=== PATIENT | male | born 1945 | race Caucasian/White ===

== ENCOUNTER → 2016-06-18 | Outpatient (CLI) | payer OTHER ==
[~2016-06-18] MED LIST: ASPI81TA28 PO; LVNIS150 SQ; RIVA1TAB4 PO; WARF10TA PO; WARF5TAB90 PO
[2016-06-18 10:00] LABS: ESTIMATED AVERAGE GLUCOSE 120 mg/dl; HA1C FLAG Normal (Normal)
== END | disposition home or self-care (01) ==
LOC: C.LAB1850 06:52
PROVIDERS: ATTEND Internal Medicine
DX: Z00.00 Encounter for general adult medical examination without abnormal findings (principal); E78.5 Hyperlipidemia, unspecified; R73.9 Hyperglycemia, unspecified

== ENCOUNTER → 2016-07-09 | Outpatient (CLI) | payer OTHER | END | disposition home or self-care (01) | LOC: C.LABSPEC 17:27 | PROVIDERS: ATTEND Internal Medicine | DX: Z12.11 Encounter for screening for malignant neoplasm of colon (principal) ==

== ENCOUNTER 2016-08-21 18:28 | Emergency (ER) | payer OTHER ==
[~2016-08-21] VITALS: Ht 177.8 cm; Wt 130.0 kg
[~2016-08-21 18:28] MED LIST changes: -ACET325T96 PO; -ASPI81TA28 PO; -CETI10TA10 PO; -LVNIS150 SQ; -RIVA1TAB4 PO; -WARF10TA4 PO; -WARF5TAB90 PO; -WARF7.5T4 PO
[2016-08-21 18:33] VITALS: TEMP 36.8; Ht 177.8 cm; Wt 130.0 kg
--- NOTE | 2016-08-21 19:00 | EMERGENCY ROOM VISIT NOTE ---
History Report prepared by Ishan: Lina Beverly Under the Supervision of: Dr. Abhay Kirby D.O. First contact with patient: 18:38 Chief Complaint: ABNORMAL DIAGNOSTIC TESTING Stated Complaint: DVT RIGHT LEG History of Present Illness The patient is a 71 year old male who presents to the Emergency Room with complaints of persistent right leg pain starting 4-5 days ago. He was sent to the ED after an ultrasound which found a DVT in his right leg. 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 No cause was identified for it at the time. He was put on Coumadin. He has been off Coumadin for 2 years. He denies any chest pain, SOB , nausea, vomiting, or rectal bleeding. He denies any liver or kidney problems. He denies any recent surgery or travel. He currently takes 2 baby aspirin a day. He sees no reason for not starting Coumadin again. He has no other medical problems. He denies any alcohol use. He is retired. Source of History: patient Onset: 4-5 days ago Position: leg (right) Quality: other (pain) Timing: other (persistent) Associated Symptoms: No SOB, No chest pain, No nausea, No vomiting Note: Pt denies rectal bleeding. Review of Systems See HPI for pertinent positives & negatives. A total of 10 systems reviewed and were otherwise negative. Past Medical & Surgical Medical Problems: (1) Deep venous thrombosis (2) idris-rectal abscess Family History No pertinent family history reported. Social History Smoking Status: Never Smoker Alcohol Use: none Marital Status: single Housing Status: lives alone Occupation Status: retired Current/Historical Medications Scheduled Aspirin (Aspirin Ec), 162 MG PO QAM Enoxaparin (Lovenox), 130 MG SQ BID Warfarin Sodium (Coumadin), 5 MG PO DAILY Allergies Coded Allergies: No Known Allergies (Unverified , 08/21/16) Physical Exam Vital Signs Date Time Temp Pulse Resp B/P Pulse Ox O2 Delivery O2 Flow Rate FiO2 08/21/16 19:46 78 18 160/86 96 Room Air 08/21/16 18:33 36.8 84 20 126/68 95 Room Air Physical Exam GENERAL: Patient is awake, alert, and in no acute distress. Patient is resting comfortably and showing no signs of anxiety EYES: The conjunctivae are clear. The pupils are round and reactive. EARS, NOSE, MOUTH AND THROAT: The nose is without any evidence of any deformity. Mucous membranes are moist tongue is midline NECK: The neck is nontender and supple. RESPIRATORY: Normal respiratory effort is noted there is no evidence of wheezing rhonchi or rales CARDIOVASCULAR: Regular rate and rhythm noted there no murmurs rubs or gallops normal S1 normal S2 GASTROINTESTINAL: The abdomen is soft. Bowel sounds are present in all quadrants. Abdomen is nontender MUSCULOSKELETAL/EXTREMITIES: There is no evidence of gross deformity full range of motion is noted in the hips and shoulders SKIN: Right calf tenderness, mild pedal edema noted bilaterally right greater than left. NEUROLOGIC: Patient is awake alert and oriented x3. Medical Decision & Procedures Laboratory Results 08/21/16 19:05 Red Blood Count 4.38, Mean Corpuscular Volume 95.2, Mean Corpuscular Hemoglobin 32.2, Mean Corpuscular Hemoglobin Concent 33.8, Mean Platelet Volume 9.3, Neutrophils (%) (Auto) 62.3, Lymphocytes (%) (Auto) 26.5, Monocytes (%) (Auto) 9.0, Eosinophils (%) (Auto) 1.5, Basophils (%) (Auto) 0.4, Neutrophils # (Auto) 4.96, Lymphocytes # (Auto) 2.11, Monocytes # (Auto) 0.72, Eosinophils # (Auto) 0.12, Basophils # (Auto) 0.03 08/21/16 19:05 Test 08/21/16 19:05 White Blood Count 7.96 K/uL (4.8-10.8) Red Blood Count 4.38 M/uL (4.7-6.1) Hemoglobin 14.1 g/dL (14.0-18.0) Hematocrit 41.7 % (42-52) Mean Corpuscular Volume 95.2 fL (80-100) Mean Corpuscular Hemoglobin 32.2 pg (25-34) Mean Corpuscular Hemoglobin Concent 33.8 g/dl (32-36) Platelet Count 197 K/uL (130-400) Mean Platelet Volume 9.3 fL (7.4-10.4) Neutrophils (%) (Auto) 62.3 % Lymphocytes (%) (Auto) 26.5 % Monocytes (%) (Auto) 9.0 % Eosinophils (%) (Auto) 1.5 % Basophils (%) (Auto) 0.4 % Neutrophils # (Auto) 4.96 K/uL (1.4-6.5) Lymphocytes # (Auto) 2.11 K/uL (1.2-3.4) Monocytes # (Auto) 0.72 K/uL (0.11-0.59) Eosinophils # (Auto) 0.12 K/uL (0-0.5) Basophils # (Auto) 0.03 K/uL (0-0.2) RDW Standard Deviation 46.4 fL (36.4-46.3) RDW Coefficient of Variation 13.4 % (11.5-14.5) Immature Granulocyte % (Auto) 0.3 % Immature Granulocyte # (Auto) 0.02 K/uL (0.00-0.02) Prothrombin Time 10.7 SECONDS (9.0-12.0) Prothromb Time International Ratio 1.0 (0.9-1.1) Activated Partial Thromboplast Time 25.0 SECONDS (21.0-31.0) Partial Thromboplastin Ratio 1.0 Anion Gap 8.0 mmol/L (3-11) Est Creatinine Clear Calc Drug Dose 94.5 ml/min Estimated GFR () 88.6 Estimated GFR (Non- 76.5 BUN/Creatinine Ratio 12.2 (10-20) Calcium Level 8.6 mg/dl (8.5-10.1) Total Bilirubin 0.2 mg/dl (0.2-1) Direct Bilirubin < 0.1 mg/dl (0-0.2) Aspartate Amino Transf (AST/SGOT) 20 U/L (15-37) Alanine Aminotransferase (ALT/SGPT) 38 U/L (12-78) Alkaline Phosphatase 47 U/L (45-117) Total Protein 7.5 gm/dl (6.4-8.2) Albumin 3.7 gm/dl (3.4-5.0) Laboratory results per my review. Medications Administered Medications (Trade) Dose Ordered Sig/Guilherme Route Start Time Stop Time Status Last Admin Dose Admin Enoxaparin Sodium (Lovenox Inj) 130 mg NOW ONCE SQ 08/21/16 19:30 08/21/16 19:31 DC 08/21/16 19:39 130 MG Warfarin Sodium (Coumadin Tab) 10 mg NOW ONCE PO 08/21/16 19:30 08/21/16 19:31 DC 08/21/16 19:39 10 MG ED Course 1849: The patient was evaluated in room B12B. A complete history and physical examination were performed. 1929: Coumadin Tab 10 mg PO, Lovenox Inj 130 mg SQ. 1939: Upon reevaluation, the patient is resting comfortably. I discussed the results and treatment plan with him. He verbalized agreement of the treatment plan. He was discharged home. Medical Decision Prior records reviewed and summarized above. Triage Nursing notes reviewed. The patient's history was concerning for swelling and pain in the leg. Differential diagnosis: Etiologies such as DVT, musculoskeletal, infection, joint effusion, trauma, lymphedema, idiopathic, CHF, as well as others were entertained. The patient is a 71-year-old male who presented to the emergency department after an outpatient ultrasound revealed a DVT in the right lower extremity. The patient has a history of DVT but is currently not on anticoagulation. I discussed the patient's laboratory and radiographic studies with him. He was started on Lovenox and Coumadin in the emergency department. He was encouraged to follow-up with the Coumadin clinic this week for reevaluation. He was also encouraged to continue all medications as prescribed. He denied having any chest pain or shortness of breath. He did not have unstable vital signs. He was encouraged to return to the emergency department immediately if symptoms change worsen or the need arises. Impression Primary Impression: Deep vein thrombosis (DVT) of right lower extremity Scribe Attestation The scribe's documentation has been prepared under my direction and personally reviewed by me in its entirety. I confirm that the note above accurately reflects all work, treatment, procedures, and medical decision making performed by me. Departure Information Dispostion Home / Self-Care Prescriptions Warfarin Sodium (COUMADIN) 5 Mg Tab 5 MG PO DAILY, #90 TAB Prov: Abhay Kirby, DO 08/21/16 Enoxaparin (LOVENOX) 150 Mg/1 Ml Inj 130 MG SQ BID, #30 SYR Prov: Abhay Kirby, DO 08/21/16 Referrals RV. Gibson MD (PCP) Forms HOME CARE DOCUMENTATION FORM, IMPORTANT VISIT INFORMATION, WORK / SCHOOL INSTRUCTIONS Patient Instructions DVT, My [facility] Additional Instructions Continue all medications as prescribed. Follow-up with your family this week for reevaluation. Return to the emergency department immediately if symptoms change worsen or the need arises. Problem Qualifiers Primary Impression: Deep vein thrombosis (DVT) of right lower extremity Affected thrombotic vein of extremity: unspecified vein of extremity Chronicity: acute Qualified Codes: I82.401 - Acute embolism and thrombosis of unspecified deep veins of right lower extremity
[2016-08-21 19:14] LABS: BASO % 0.4 %; BASO ABS # 0.03 K/uL (0-0.2); COMPLETE YES; EOS % 1.5 %; HEMATOCRIT 41.7 % (42-52); IG% 0.3 %; LYMPH % 26.5 %; LYMPH ABS # 2.11 K/uL (1.2-3.4); MEAN CELL VOLUME 95.2 fL (80-100); MEAN CORPUSCULAR HEMOGLOBIN 32.2 pg (25-34); MEAN CORPUSCULAR HGB CONC 33.8 g/dl (32-36); MEAN PLATELET VOLUME 9.3 fL (7.4-10.4); NEUT % 62.3 %; PLATELET COUNT 197 K/uL (130-400); RED BLOOD COUNT 4.38 M/uL (4.7-6.1); WHITE BLOOD COUNT 7.96 K/uL (4.8-10.8)
[2016-08-21] MEDS ORDERED: ASPI81TA28 PO (19:17)
[2016-08-21 19:23] LABS: PROTHROMBIN TIME (PATIENT) 10.7 SECONDS (9.0-12.0)
[2016-08-21] MEDS ORDERED: WARF5TAB90 PO (19:26)
[2016-08-21] MEDS ORDERED: LVNIS150 SQ (19:26)
[2016-08-21] MEDS ORDERED: ENOXAPARIN 150 MG/1ML SYR SQ ONE (19:30)
[2016-08-21] MEDS ORDERED: WARFARIN SOD 5 MG TAB PO ONE (19:30)
[2016-08-21 19:31] LABS: ALT/SGPT 38 U/L (12-78); AST/SGOT 20 U/L (15-37); BLOOD UREA NITROGEN 12 mg/dl (7-18); BUN/CREATININE RATIO 12.2 (10-20); CALCIUM 8.6 mg/dl (8.5-10.1); CARBON DIOXIDE 25 mmol/L (21-32); CHLORIDE 110 mmol/L (98-107); GLUCOSE 103 mg/dl (70-99); SODIUM 143 mmol/L (136-145)
[2016-08-21 19:34] LABS: ALKALINE PHOSPHATASE 47 U/L (45-117)
[2016-08-21 19:46] VITALS: BP 160/86; PULSE 78; O2SAT 96
[2017-02-26] MEDS ORDERED: WARF10TA4 PO (11:23)
[2017-02-26] MEDS ORDERED: ACET325T96 PO (12:29)
[2017-02-26] MEDS ORDERED: CETI10TA10 PO (12:29)
[2017-03-25] MEDS ORDERED: WARF7.5T4 PO (07:39)
== END 2016-08-21 19:58 | disposition home or self-care (01) ==
LOC: C.EDB 18:30
DX: I82.401 Acute embolism and thrombosis of unspecified deep veins of right lower extremity (principal); Z79.82 Long term (current) use of aspirin; Z79.01 Long term (current) use of anticoagulants; I82.411 Acute embolism and thrombosis of right femoral vein

== ENCOUNTER → 2016-08-21 | Outpatient (CLI) | payer OTHER ==
[~2016-08-21] MED LIST changes: +ACET325T96 PO; +CETI10TA10 PO; +WARF10TA4 PO; +WARF7.5T4 PO
--- NOTE | 2016-08-21 17:44 | DIAGNOSTIC IMAGING REPORT ---
RIGHT LOWER EXTREMITY VENOUS DOPPLER CLINICAL HISTORY: Right knee pain and swelling. COMPARISON STUDY: Bilateral lower extremity venous Doppler January 16, 2013 TECHNIQUE: Sonography of the deep venous system of the right lower extremity was performed. Compression and augmentation were evaluated. FINDINGS: A portion of the right femoral vein is incompletely compressible. This suggests age indeterminate thrombus. Occlusive thrombus is noted within a superficial vein of the posterior right calf. The thrombus extends into the right popliteal vein. IMPRESSION: 1. Age indeterminate nonocclusive thrombus within the right femoral vein. 2. Occlusive thrombus within a superficial vein of the right posterior calf. Thrombus extends into the right popliteal vein. This thrombus is likely acute.. Electronically signed by: Rafa Cobb M.D. 08/21/2016 5:43 PM Dictated Date/Time: 08/21/2016 5:40 PM
== END | disposition home or self-care (01) ==
LOC: C.ULTR 17:01
PROVIDERS: ATTEND Internal Medicine
DX: I82.411 Acute embolism and thrombosis of right femoral vein (principal)

== ENCOUNTER 2016-11-04 02:48 | Observation (INO) | payer OTHER ==
[~2016-11-04] VITALS: Ht 177.8 cm; Wt 130.5 kg
[~2016-11-04 02:48] MED LIST changes: +ASPI81TA28 PO; +LVNIS150 SQ; -WARF10TA PO; +WARF5TAB90 PO
[2016-11-04] MEDS ORDERED: LIDOCAINE HCL 2% VISC SOLN 20 ML UDC PO STA (03:08)
[2016-11-04] MEDS ORDERED: ALUMINUM/MAGNESIUM SUSP 30 ML UDC PO STA (03:08)
[2016-11-04 03:25] LABS: BASO % 0.5 %; BASO ABS # 0.04 K/uL (0-0.2); COMPLETE YES; EOS % 2.2 %; HEMATOCRIT 42.7 % (42-52); IG% 0.3 %; LYMPH % 25.8 %; LYMPH ABS # 1.92 K/uL (1.2-3.4); MEAN CELL VOLUME 94.5 fL (80-100); MEAN CORPUSCULAR HEMOGLOBIN 31.9 pg (25-34); MEAN CORPUSCULAR HGB CONC 33.7 g/dl (32-36); MEAN PLATELET VOLUME 8.6 fL (7.4-10.4); MONO % 8.6 %; NEUT % 62.6 %; PLATELET COUNT 207 K/uL (130-400); RED BLOOD COUNT 4.52 M/uL (4.7-6.1); WHITE BLOOD COUNT 7.44 K/uL (4.8-10.8)
[2016-11-04] MEDS ORDERED: RIVA1TAB4 PO (03:27)
[2016-11-04 04:06] LABS: ALKALINE PHOSPHATASE 46 U/L (45-117); ALT/SGPT 52 U/L (12-78); AST/SGOT 49 U/L (15-37); BLOOD UREA NITROGEN 15 mg/dl (7-18); BUN/CREATININE RATIO 13.3 (10-20); CALCIUM 8.7 mg/dl (8.5-10.1); CARBON DIOXIDE 28 mmol/L (21-32); CHLORIDE 106 mmol/L (98-107); GLUCOSE 129 mg/dl (70-99); POTASSIUM 4.4 mmol/L (3.5-5.1); SODIUM 141 mmol/L (136-145)
[2016-11-04] MEDS ORDERED: ONDANSETRON INJ 2 MG/ML 2 ML VIAL IV STA ×2 (04:13→05:04)
[2016-11-04] MEDS ORDERED: MoRPHine SULFATE 4 MG/ML 1 ML CARP\\VIAL IV STA (04:13)
[2016-11-04] MEDS ORDERED: HYDROmorphone INJ 1 MG/ML SYR IV STA (05:04)
--- NOTE | 2016-11-04 05:34 | EMERGENCY ROOM VISIT NOTE ---
History First contact with patient: 02:58 Chief Complaint: ABDOMINAL PAIN Stated Complaint: STOMACH PAIN Nursing Triage Summary: mid epigastric pain started at 3 History of Present Illness The patient is a 71 year old male who presents to the Emergency Room with complaints of epigastric pain for the past 3 hours described as discomfort, 5 out of 10. Nothing makes it better or worse. Patient is on Xarelto for DVT. He has not missed a dose. Patient denies prior heart disease, dyspnea, fever, chills, nausea, vomiting, diarrhea, radiating pain, back pain. His father had heart disease in his 60s. No recent stress test or echo. Patient had crab cake , Gianluca salad and chocolate cake for dinner. No alcohol. Review of Systems See HPI for pertinent positives & negatives. A total of 10 systems reviewed and were otherwise negative. Past Medical/Surgical History Medical Problems: (1) Deep venous thrombosis (2) idris-rectal abscess Social History Smoking Status: Never Smoker Alcohol Use: occasionally Drug Use: none Marital Status: single Housing Status: lives alone Occupation Status: retired Current/Historical Medications Scheduled Rivaroxaban (Xarelto), 20 MG PO DAILY Allergies Coded Allergies: No Known Allergies (Unverified , 11/04/16) Physical Exam Vital Signs Date Time Temp Pulse Resp B/P (MAP) Pulse Ox O2 Delivery O2 Flow Rate FiO2 11/04/16 05:15 65 16 114/69 96 Room Air 11/04/16 03:20 97 Room Air 11/04/16 03:20 Room Air 11/04/16 03:17 68 11/04/16 02:56 37.1 69 18 147/86 96 Room Air Physical Exam VITALS: Vitals are noted on the nurse's note and reviewed by myself. Vital signs stable. GENERAL: Pleasant male, in no acute distress, nondiaphoretic, well-developed well-nourished. SKIN: The skin was without rashes, erythema, edema, or bruising. There is no tenting of the skin. Capillary reflex less than 2 seconds. HEAD: Normocephalic atraumatic. EARS: External auditory canals clear, tympanic membranes pearly perez without erythema or effusion bilaterally. EYES: Pupils equal round and reactive to light and accommodation. Conjunctivae without injection, sclerae without icterus. Extraocular movements intact. NOSE: Patent, turbinates without inflammation or discharge. MOUTH: Mucous membranes moist. Pharynx without erythema or exudate. Uvula midline. Airway patent. Tongue does not deviate. NECK: Supple without nuchal rigidity. No lymphadenopathy. No thyromegaly. Cervical spine is nontender. No JVD. HEART: Regular rate and rhythm without murmurs gallops or rubs. LUNGS: Clear to auscultation bilaterally without wheezes, rales or rhonchi. No dullness to percussion. No retractions or accessory muscle use. ABDOMEN: Positive bowel sounds x 4. Normal tympanic percussion. Soft, tender to palpation epigastric region, no CVA tenderness, without masses or organomegaly. Adams sign negative. No guarding or rebound tenderness. MUSCULOSKELETAL: No muscle atrophy, erythema, or edema noted. NEURO: Patient was alert and oriented to person place and time. Normal sensation to light and sharp touch. No focal neurological deficits. Medical Decision & Procedures Laboratory Results 11/04/16 03:15 Red Blood Count 4.52, Mean Corpuscular Volume 94.5, Mean Corpuscular Hemoglobin 31.9, Mean Corpuscular Hemoglobin Concent 33.7, Mean Platelet Volume 8.6, Neutrophils (%) (Auto) 62.6, Lymphocytes (%) (Auto) 25.8, Monocytes (%) (Auto) 8.6, Eosinophils (%) (Auto) 2.2, Basophils (%) (Auto) 0.5, Neutrophils # (Auto) 4.66, Lymphocytes # (Auto) 1.92, Monocytes # (Auto) 0.64, Eosinophils # (Auto) 0.16, Basophils # (Auto) 0.04 11/04/16 03:15 Test 11/04/16 03:15 11/04/16 05:15 White Blood Count 7.44 K/uL (4.8-10.8) Red Blood Count 4.52 M/uL (4.7-6.1) Hemoglobin 14.4 g/dL (14.0-18.0) Hematocrit 42.7 % (42-52) Mean Corpuscular Volume 94.5 fL (80-100) Mean Corpuscular Hemoglobin 31.9 pg (25-34) Mean Corpuscular Hemoglobin Concent 33.7 g/dl (32-36) Platelet Count 207 K/uL (130-400) Mean Platelet Volume 8.6 fL (7.4-10.4) Neutrophils (%) (Auto) 62.6 % Lymphocytes (%) (Auto) 25.8 % Monocytes (%) (Auto) 8.6 % Eosinophils (%) (Auto) 2.2 % Basophils (%) (Auto) 0.5 % Neutrophils # (Auto) 4.66 K/uL (1.4-6.5) Lymphocytes # (Auto) 1.92 K/uL (1.2-3.4) Monocytes # (Auto) 0.64 K/uL (0.11-0.59) Eosinophils # (Auto) 0.16 K/uL (0-0.5) Basophils # (Auto) 0.04 K/uL (0-0.2) RDW Standard Deviation 47.0 fL (36.4-46.3) RDW Coefficient of Variation 13.6 % (11.5-14.5) Immature Granulocyte % (Auto) 0.3 % Immature Granulocyte # (Auto) 0.02 K/uL (0.00-0.02) Anion Gap 7.0 mmol/L (3-11) Est Creatinine Clear Calc Drug Dose 86.1 ml/min Estimated GFR () 79.0 Estimated GFR (Non- 68.1 BUN/Creatinine Ratio 13.3 (10-20) Calcium Level 8.7 mg/dl (8.5-10.1) Total Bilirubin 0.2 mg/dl (0.2-1) Direct Bilirubin mg/dl (0-0.2) Aspartate Amino Transf (AST/SGOT) 49 U/L (15-37) Alanine Aminotransferase (ALT/SGPT) 52 U/L (12-78) Alkaline Phosphatase 46 U/L (45-117) Troponin I < 0.015 ng/ml (0-0.045) Total Protein 7.6 gm/dl (6.4-8.2) Albumin 3.7 gm/dl (3.4-5.0) Lipase 143 U/L (73-393) Chemistry Specimen Hemolysis Bedside Troponin I < 0.030 ng/ml (0-0.045) Medications Administered Medications (Trade) Dose Ordered Sig/Guilherme Route Start Time Stop Time Status Last Admin Dose Admin Lidocaine HCl (Viscous Lidocaine 2% Soln) 10 ml NOW STAT PO 11/04/16 03:08 11/04/16 03:10 DC 11/04/16 03:08 10 ML Al Hydroxide/Mg Hydroxide (Maalox Susp) 30 ml NOW STAT PO 11/04/16 03:08 11/04/16 03:10 DC 11/04/16 03:08 30 ML Morphine Sulfate (MoRPHine SULFATE INJ) 4 mg NOW STAT IV 11/04/16 04:13 11/04/16 04:15 DC 11/04/16 04:13 4 MG Ondansetron HCl (Zofran Inj) 4 mg NOW STAT IV 11/04/16 04:13 11/04/16 04:15 DC 11/04/16 04:13 4 MG Hydromorphone HCl (Dilaudid Inj) 1 mg NOW STAT IV 11/04/16 05:04 11/04/16 05:05 DC 11/04/16 05:14 1 MG Ondansetron HCl (Zofran Inj) 4 mg NOW STAT IV 11/04/16 05:04 11/04/16 05:05 DC 11/04/16 05:14 4 MG ED Course Prior records/ancillary studies reviewed. Triage Nursing notes reviewed. The patient's history was concerning for chest pain. Differential diagnosis: Etiologies such as cardiac ischemia, aortic dissection, pulmonary embolism, pneumonia, pneumothorax, musculoskeletal, infections, pericarditis, myocarditis , esophageal rupture, gastrointestinal, as well as others were entertained. Physical examination: As above. ER treatment provided: GI cocktail On reassessment the patient felt better. Diagnostic interpretation by me: The electrocardiogram was normal sinus, normal axis, T-wave inversion in lead 3 , rate of 69. Impression normal sinus rhythm interpreted by myself The labs revealed negative troponin Imaging studies: Chest x-ray with no acute consolidation, pneumothorax or free air per my interpretation Ultrasound concerning for cholelithiasis without acute cholecystitis Consultation: A consultation was placed with the hospitalist, Dr. Dent. The case was discussed and diagnostics were reviewed. The patient was evaluated in the ER for further treatment. Exam and history seem consistent with biliary colic with intractable pain. Patient was still in severe amount of pain. He did not feel comfortable going home. Medicine was paged for possible admission. Patient had a normal EKG. Negative troponin 2 2 hours apart. He was well-appearing. By the evaluation outlined above emergent etiologies such as cardiac ischemia, aortic dissection, pulmonary embolism, pneumonia, pneumothorax, pericarditis, myocarditis, gastrointestinal, as well as others were deemed relatively unlikely. The pt informed about the findings as listed above. All questions were answered and pleased with the treatment. Case reviewed with my attending Medical Decision As above Impression Primary Impression: Biliary colic Additional Impression: Intractable abdominal pain Departure Information Dispostion Being Evaluated By Hospitalist Condition FAIR Referrals RV. Gibson MD (PCP) Patient Instructions My [facility] Problem Qualifiers
[2016-11-04] MEDS ORDERED: ACETAMINOPHEN 325 MG TAB PO PRN (05:45)
[2016-11-04] MEDS ORDERED: ONDANSETRON INJ 2 MG/ML 2 ML VIAL IV PRN (05:45)
[2016-11-04] MEDS ORDERED: POLYETHYLENE (MIRALAX) 17 GM PACK PO PRN (05:45)
[2016-11-04] MEDS ORDERED: ALUMINUM/MAGNESIUM/SIMETH (MAALOX MAX) 30 ML UDC PO PRN (05:45)
[2016-11-04] MEDS ORDERED: MAGNESIUM HYDROXIDE SUSP 30 ML UDC PO PRN (05:45)
[2016-11-04] MEDS ORDERED: ENOXAPARIN 40 MG/0.4 ML SYR SQ SCH (05:45)
[2016-11-04] MEDS ORDERED: PANTOprazole SOD 40 MG TAB PO STA (05:46)
[2016-11-04] MEDS ORDERED: RANITIDINE HCL 150 MG TAB PO STA (05:53)
--- NOTE | 2016-11-04 05:55 | History and Physical ---
History & Physical Date & Time of Service: Nov 04, 2016 at 05:47 Chief Complaint: Stomach Pain Primary Care Physician: RV. Gibson MD History of Present Illness Source: patient Mr Lucero is a 71 yo obese male w/recent DVT, on Xarelto, who presents with intractable abdominal pain. He reports he went out to dinner yesterday as usual , had crab cakes and other food he is used to eating (none of which were spicy) , went home, and when brushing his teeth noticed some epigastric pain. He tried some Pepto bismol but it did not help. The pain is 8/10 severity, radiates suprapubically but does not radiate into his back, chest or groin. He decided to come in the hospital, and since being in the ED had a gallbladder US which showed cholelithiasis. He had 4mg IV Morphine and a GI cocktail which did not provide much relief. He then had 1mg dilaudid IV which helped. Past Medical/Surgical History Medical Problems: (1) Deep venous thrombosis Status: Chronic (2) idris-rectal abscess Status: Resolved Family History Mother had her gallbladder removed No other pertinent FHx Social History Smoking Status: Never Smoker Drug Use: none Marital Status: single Housing status: lives with significant other Occupational Status: retired Allergies Coded Allergies: No Known Allergies (Unverified , 11/04/16) Home Medications Scheduled Rivaroxaban (Xarelto), 20 MG PO DAILY Review of Systems See HPI for pertinent positives & negatives. A total of 10 systems reviewed and were otherwise negative. Physical Exam Vital Signs Date Time Temp Pulse Resp B/P (MAP) Pulse Ox O2 Delivery O2 Flow Rate FiO2 11/04/16 05:15 65 16 114/69 96 Room Air 11/04/16 03:20 97 Room Air 11/04/16 03:20 Room Air 11/04/16 03:17 68 11/04/16 02:56 37.1 69 18 147/86 96 Room Air General Appearance: WD/WN, + mild distress, + obese Head: normocephalic, atraumatic Eyes: normal inspection ENT: hearing grossly normal Neck: supple, no JVD Respiratory/Chest: lungs clear, normal breath sounds, no respiratory distress Cardiovascular: regular rate, rhythm, no murmur, normal peripheral pulses Abdomen/GI: + tenderness (epigastric tenderness, mild guarding. no tenderness in RUQ or other abd carrillo.) Back: no CVA tenderness, no muscle spasm Extremities/Musculoskelatal: no calf tenderness, no pedal edema Neurologic/Psych: alert, normal mood/affect, oriented x 3 Skin: no rash Diagnostics Laboratory Results Results Past 24 Hours Test 11/04/16 03:15 11/04/16 03:30 11/04/16 05:15 11/04/16 05:43 Range/Units White Blood Count 7.44 4.8-10.8 K/uL Red Blood Count 4.52 4.7-6.1 M/uL Hemoglobin 14.4 14.0-18.0 g/dL Hematocrit 42.7 42-52 % Mean Corpuscular Volume 94.5 80-100 fL Mean Corpuscular Hemoglobin 31.9 25-34 pg Mean Corpuscular Hemoglobin Concent 33.7 32-36 g/dl Platelet Count 207 130-400 K/uL Mean Platelet Volume 8.6 7.4-10.4 fL Neutrophils (%) (Auto) 62.6 % Lymphocytes (%) (Auto) 25.8 % Monocytes (%) (Auto) 8.6 % Eosinophils (%) (Auto) 2.2 % Basophils (%) (Auto) 0.5 % Neutrophils # (Auto) 4.66 1.4-6.5 K/uL Lymphocytes # (Auto) 1.92 1.2-3.4 K/uL Monocytes # (Auto) 0.64 0.11-0.59 K/uL Eosinophils # (Auto) 0.16 0-0.5 K/uL Basophils # (Auto) 0.04 0-0.2 K/uL RDW Standard Deviation 47.0 36.4-46.3 fL RDW Coefficient of Variation 13.6 11.5-14.5 % Immature Granulocyte % (Auto) 0.3 % Immature Granulocyte # (Auto) 0.02 0.00-0.02 K/uL Sodium Level 141 136-145 mmol/L Potassium Level 4.4 3.5-5.1 mmol/L Chloride Level 106 98-107 mmol/L Carbon Dioxide Level 28 21-32 mmol/L Anion Gap 7.0 3-11 mmol/L Blood Urea Nitrogen 15 7-18 mg/dl Creatinine 1.10 0.60-1.40 mg/dl Est Creatinine Clear Calc Drug Dose 86.1 ml/min Estimated GFR () 79.0 Estimated GFR (Non- 68.1 BUN/Creatinine Ratio 13.3 10-20 Random Glucose 129 70-99 mg/dl Calcium Level 8.7 8.5-10.1 mg/dl Total Bilirubin 0.2 0.2-1 mg/dl Direct Bilirubin 0-0.2 mg/dl Aspartate Amino Transf (AST/SGOT) 49 15-37 U/L Alanine Aminotransferase (ALT/SGPT) 52 12-78 U/L Alkaline Phosphatase 46 45-117 U/L Troponin I < 0.015 0-0.045 ng/ml Total Protein 7.6 6.4-8.2 gm/dl Albumin 3.7 3.4-5.0 gm/dl Lipase 143 73-393 U/L Chemistry Specimen Hemolysis Bedside Troponin I < 0.030 < 0.030 0-0.045 ng/ml Diagnostic Radiology US: Cholelithiasis without evidence of acute cholecystitis (formal report pending) CXR normal EKG Normal sinus rhythm Low voltage QRS Borderline ECG When compared with ECG of 04-NOV-2016 03:08, (unconfirmed) T wave inversion in lead III was also present on EKG in 2011. Impression Assessment and Plan 71 yo obese male with intractable epigastric abd pain - ddx gastritis ( potentially precipitated by Xarelto), stone related, AAA, MSK. Abdominal pain - HIDA scan this AM - NPO with ice chips, then advance diet as tolerated - IV fluid rehydration - Protonix and Zantac PO for potential gastritis - Last dose of dilaudid 1mg was at 5 am - will switch to PO percocet - CT abd / pelvis with IV contrast to evaluate further Hx of DVT - Continue Xarelto Pre-Diabetes - Will check HbA1c VTE: Lovenox DISPO: Med/Surg CODE STATUS: FULL Attending Addendum: I have physically seen and examined this patient, have supervised the medical residents activities, and agree with the H&P as noted above with the following exceptions: NONE The patient is awake, well-developed and adequately nourished, alert and oriented 3, normocephalic and atraumatic, lying in bed and in no acute distress. HEENT--PERRL, EOMI, mucous membranes and oropharynx dry. Neck--supple, no JVD or bruits, thyroid normal, trachea midline, no adenopathy. Heart--normal S1 and S2, no extra beats, no murmurs, rubs or gallops. Lungs--clear bilaterally with good air movement, no respiratory distress, no accessory muscle use. Abdomen--normal bowel sounds and soft, minimal tenderness epigastric area, nondistended, no hernias or masses, no organomegaly. Extremities--no cyanosis, clubbing or edema. There are good distal pulses b/l. Dermatologic--normal skin turgor, normal color, warm and dry, no abnormal lymph nodes, no rash. Neurologic--cranial nerves II through XII grossly intact, motor and sensory examination normal. Rheumatologic--normal range of motion, nontender, muscles and joints. Psychiatric--normal affect. Assessment and Plan: 1. Epigastric abdominal pain with sudden onset after a rich spicy meal--the patient be admitted to the medical surgical floor for further workup. Differential includes esophagitis/esophageal ulcer/gastritis/gastric ulcer/ duodenitis/cholecystitis/pancreatitis and others. The patient will be admitted for nothing by mouth status. Place on normal saline with KCl 20 mEq at 150 ML's per hour We will order a HIDA scan with gallbladder ejection fraction. Order CT of abdomen and pelvis with IV contrast. Protonix and Zantac by mouth. Hold Xarelto treatment for DVT for potential procedure. If above workup is negative and patient symptoms are persistent could consult GI for possible EGD. VTE Prophylaxis VTE Risk Assessment Done? Y/N: Yes Risk Level: Moderate Resident Tracking Resident Involvement: Resident Care Provided Care Provided: Adult [facility]
[2016-11-04] MEDS ORDERED: OPTIRAY 320 IV PRN (06:00)
--- NOTE | 2016-11-04 06:29 | DIAGNOSTIC IMAGING REPORT ---
CHEST ONE VIEW PORTABLE CLINICAL HISTORY: CHEST PAIN dyspnea COMPARISON STUDY: 04/20/2012 FINDINGS: Mild stable cardiomegaly. Diaphragms are smooth. Mild prominence pulmonary vasculature. No focal infiltrate. IMPRESSION: 1. Mild stable cardia megaly. 2. Prominent pulmonary vasculature. The above report was generated using voice recognition software. It may contain grammatical, syntax or spelling errors. Electronically signed by: Jesse Earl M.D. 11/04/2016 6:28 AM Dictated Date/Time: 11/04/2016 6:27 AM
--- NOTE | 2016-11-04 06:33 | DIAGNOSTIC IMAGING REPORT ---
GALLBLADDER-ABD LIMITED CLINICAL HISTORY: epi pain, ? GB pain. Nausea. TECHNIQUE: Ultrasound COMPARISON STUDY: None FINDINGS: Gallstones within the gallbladder lumen. No pericholecystic fluid. Common mild duct 6 mm. Fatty infiltration of liver. Pancreas poorly seen. Right kidney is negative for hydronephrosis. Possible nonobstructing calcifications upper and lower poles IMPRESSION: 1. Gallstones. 2. Common bile duct 6 mm. 3. Fatty infiltration of liver. 4. Potential nonobstructing right renal calcifications. The above report was generated using voice recognition software. It may contain grammatical, syntax or spelling errors. Electronically signed by: Jesse Earl M.D. 11/04/2016 6:32 AM Dictated Date/Time: 11/04/2016 6:30 AM
--- NOTE | 2016-11-04 06:45 | DIAGNOSTIC IMAGING REPORT ---
ABD/PELVIS IV CONTRAST ONLY CT DOSE: 1568.68 mGy.cm HISTORY: Pain flank pain TECHNIQUE: Multiaxial CT images of the abdomen and pelvis were performed following the use of intravenous contrast. COMPARISON STUDY: None. FINDINGS: Lung bases are clear. Mild fatty replacement of the liver. Spleen is unremarkable. Pancreas is uniform. Kidneys enhance uniformly. Several nonobstructing punctate renal calcifications bilaterally. Scattered colonic diverticuli. No evidence of diverticulitis. Mild increase in density of the root of the mesentery no significant abdominal pelvic or inguinal robert pathology. IMPRESSION: 1. No evidence for an obstructing urinary tract calculus. 2. Several nonobstructing punctate renal calcifications. 3. No evidence for an obstructing urinary tract calculus. 4. Scattered colonic diverticuli. 5. Subtle increase in density of the root of the mesentery possibly representing a mild inflammatory reaction 6. 2 mm calcification adjacent to the urethra The above report was generated using voice recognition software. It may contain grammatical, syntax or spelling errors. Electronically signed by: Jesse Earl M.D. 11/04/2016 6:43 AM Dictated Date/Time: 11/04/2016 6:40 AM
[2016-11-04 06:58] VITALS: BP 145/84; PULSE 70; TEMP 36.8; O2SAT 92; Ht 177.8 cm; Wt 130.5 kg
[2016-11-04 07:16] VITALS: BP 145/84; PULSE 70; TEMP 36.8; O2SAT 92
[2016-11-04] MEDS: OXYCODONE/ACETAMINOPHEN 5-325 TAB PO PRN ×2 (07:16→22:07)
[2016-11-04] MEDS: SODIUM CHLORIDE 0.9% 1000ML 1,000 ML IV SCH ×3 (07:16→19:51)
[2016-11-04 08:00] VITALS: O2SAT 92
[2016-11-04] MEDS ORDERED: PANTOprazole SOD 40 MG TAB PO ONE (08:00)
[2016-11-04] MEDS ORDERED: RANITIDINE HCL 150 MG TAB PO ONE (08:00)
[2016-11-04] MEDS ORDERED: RIVAROXABAN 10 MG TAB PO SCH (08:00)
[2016-11-04] MEDS ORDERED: HYDROmorphone INJ 0.5 MG/0.5 ML SYR IV PRN (09:30)
[2016-11-04] MEDS ORDERED: HYDROmorphone INJ 1 MG/ML SYR IV PRN (09:30)
[2016-11-04] MEDS ORDERED: PIPERACILL/TAZOBAC CONSULT ACTIVE PRN (09:45)
[2016-11-04] MEDS ORDERED: PIPERACILL/TAZOBAC IV 4.5 GM in DEXTROSE 5% 100ML 100 ML IV ONE (10:15)
--- NOTE | 2016-11-04 12:39 | Progress Note ---
Progress Note Date of Service Nov 04, 2016. Progress Note 71-year-old male admitted with abdominal pain and concern for cholelithiasis, his pain however suprapubic pending a urinalysis and culture This morning his pain control is suboptimal parenteral hydromorphone was used. The patient is scheduled for a HIDA 717. Patiently maintain IV fluids Zosyn for antibiotic coverage is anticoagulation will be held and he'll be transitioned to Lovenox apparent when appropriate by pharmacy oversight. 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
--- NOTE | 2016-11-04 12:43 | Pharmacy Progress Note ---
Pharmacy Progress Note Date of Service Nov 04, 2016. Progress Note PHARMACY CONSULT (from Dr. Munguia): "Please transition start timing of lovenox 1 mg/kg sc q 12, from his NOAC to facilitate possible stopping AC for any interventional procedure." Recent Labs: Item Value Date Time Hemoglobin 14.4 g/dL 11/04/16314 Hematocrit 42.7 % 11/04/16314 Platelet Count 207 K/uL 11/04/16314 Creatinine 1.10 mg/dl 11/04/16314 Est Creatinine Clear Calc Drug Dose 86.1 ml/min 11/04/16314 Baseline labs prior to starting Xarelto 08/21/16: * H&H: 14.1/41.7 * PLT: 197K * Scr: 1.0 A/P: 71yo male admitted with intractable abdominal pain. On therapeutic Xarelto 20mg po daily for recent R leg DVT (08/21/16). Pt has history of L leg DVT, having completed Coumadin ~ 2 years ago. I spoke with patient today. He reports taking his home dose of Xarelto 20mg po [employer]ST 11/04-pm. Pt was given Xarelto 20mg po daily this am (2 doses in ~12 hrs). Having the double doses on board, I hesitate to transition to therapeutic enox 1mg/kg sq q12hrs any sooner than 11/05-pm. Pt is scheduled to have a HIDA scan tomorrow (11/05), this outcome will facilitate the need for possible other invasive procedure(s). I have started enoxaparin 129mg sub-q q 12hrs for 11/05/16 2100. * Please consider holding/stopping enoxaparin depending on the need for more procedures. If no further procedures necessary, consider d/c LMWH and restarting Xarelto 20mg po daily when the next dose of LMWH would be due. Thank you for engaging the clinical pharmacy consult service in the care of this patient. Please let us know if we can be of further assistance.
[2016-11-04] MEDS ORDERED: IV FLUIDS COMPLETED PRN (14:45)
[2016-11-04 15:14] VITALS: BP 129/76; PULSE 74; TEMP 36.7; O2SAT 95
[2016-11-04] MEDS: PIPERACILL/TAZOBAC IV 3.375 GM in DEXTROSE 5% 100ML 100 ML IV SCH (15:42)
[2016-11-04 15:54] VITALS: O2SAT 95
[2016-11-04 23:25] VITALS: BP 137/76; PULSE 97; TEMP 36.7; O2SAT 90
[2016-11-05] MEDS: PIPERACILL/TAZOBAC IV 3.375 GM in DEXTROSE 5% 100ML 100 ML IV SCH ×3 (00:03→16:00)
[2016-11-05] MEDS ORDERED: COUGH DROP (SUGAR FREE) LOZ 24 LOZ/1 BOX PO PRN (05:30)
[2016-11-05 06:53] LABS: ESTIMATED AVERAGE GLUCOSE 128 mg/dl; HA1C FLAG Normal (Normal)
[2016-11-05 07:39] VITALS: BP 122/80; PULSE 68; TEMP 36.7; O2SAT 93
[2016-11-05 08:00] VITALS: O2SAT 93
--- NOTE | 2016-11-05 13:55 | DIAGNOSTIC IMAGING REPORT ---
HEPATOBILIARY HIDA IMAGING HISTORY: Pain. Nausea. epigastric / ruq pain COMPARISON: None. TECHNIQUE: Immediately following the intravenous administration of 5.4 mCi Tc-99m Choletec, dynamic anterior abdominal imaging was performed. FINDINGS: Uniform hepatic tracer accumulation is shown. Prompt intrahepatic biliary excretion is seen. The gallbladder, common bile duct, and small bowel are all visualized by 15 minutes. This appearance represents the normal sequence of biliary excretion. IMPRESSION: No evidence for cystic duct obstruction. Normal study The above report was generated using voice recognition software. It may contain grammatical, syntax or spelling errors. Electronically signed by: Jesse Earl M.D. 11/05/2016 1:53 PM Dictated Date/Time: 11/05/2016 1:51 PM
[2016-11-05 15:44] VITALS: BP 129/82; PULSE 72; TEMP 37.4; O2SAT 94
[2016-11-05 16:00] VITALS: O2SAT 94
--- NOTE | 2016-11-05 16:22 | Discharge Instructions ---
Discharge Instructions Date of Service Nov 05, 2016. Admission Reason for Admission: Intractable Abd Pain Discharge Discharge Diagnosis / Problem: Dyspepsia Discharge Goals Goal(s): Improve function Activity Recommendations Activity Limitations: resume your previous activity . Current Hospital Diet Patient's current hospital diet: Low Fat Diet Discharge Diet Recommended Diet: Low Fat Diet Pending Studies Studies pending at discharge: no Laboratory Results Hemoglobin A1c Test 11/04/16 03:15 Range/Units Estimated Average Glucose 128 mg/dl Hemoglobin A1c 6.1 H 4.5-5.6 % Medical Emergencies . Who to Call and When: Medical Emergencies: If at any time you feel your situation is an emergency, please call 911 immediately. . Non-Emergent Contact Non-Emergency issues call your: Primary Care Provider . . "Provider Documentation" section prepared by Reymundo Pate. . VTE Core Measure Inpt VTE Proph given/why not?: Other Anticoagulation
[2016-11-05 16:49] VITALS: BP 129/82; PULSE 72; TEMP 37.4; O2SAT 94
[2016-11-05] MEDS ORDERED: ENOXAPARIN 150 MG/1ML SYR SQ SCH (21:00)
--- NOTE | 2016-11-22 00:50 | DISCHARGE SUMMARY ---
Please see dictated H&P for full details of presentation. The patient is a 71-year-old with history of recent DVT, on Xarelto, who presented with intractable abdominal pain. He had had crab cakes and other food that he was not used to eating and noted some epigastric pain. Pepto-Bismol did not help and pain increased to an 8/10, prompting him to come to the hospital. Ultrasound showed cholelithiasis and he required IV Dilaudid to alleviate his pain. He had a CT of the abdomen and pelvis, showed no evidence of obstructing urinary tract calculus, several nonobstructing punctate renal calcifications, no evidence of obstructing urinary tract calculus, scattered colonic diverticula, subtle increase in density of the root of the mesentery, possibly representing a mild inflammatory reaction, and a 2 mm calcification adjacent to the urethra. HIDA scan was performed and there was no evidence of cystic duct obstruction, normal study. His symptoms had improved and he was discharged home in stable condition. DISCHARGE DIAGNOSIS: Dyspepsia. Low-fat diet was recommended. He will follow up with his regular doctor in 1 week. Time spent reviewing the chart, discussion with the patient on the date of discharge 31 minutes. He had a normal white count of 7.4 and a normal BMP with a creatinine of 1.1.
== END 2016-11-05 18:00 | disposition home or self-care (01) ==
LOC: C.EDB 02:49 → C.MS4W 05:45 → ENRESERV 06:05
PROVIDERS: ADMIT Hospitalist; ATTEND Hospitalist
DX: K80.20 Calculus of gallbladder without cholecystitis without obstruction (principal); R73.03 Prediabetes; E66.9 Obesity, unspecified; Z79.01 Long term (current) use of anticoagulants; Z86.718 Personal history of other venous thrombosis and embolism

== ENCOUNTER → 2017-01-28 | Outpatient (CLI) | payer OTHER ==
[~2017-01-28] MED LIST changes: -ASPI81TA28 PO; -LVNIS150 SQ; +RIVA1TAB4 PO; -WARF5TAB90 PO
== END | disposition home or self-care (01) ==
LOC: C.LAB1850 08:20
PROVIDERS: ATTEND Internal Medicine
DX: R35.0 Frequency of micturition (principal)

== ENCOUNTER → 2017-06-27 | Outpatient (CLI) | payer OTHER ==
[~2017-06-27] MED LIST changes: +ACET-1693 PO; +CETI10TA10 PO; +MISC1CAP60 PO; -RIVA1TAB4 PO; +WARF10TA4 PO; +WARF7.5T4 PO
[2017-06-27 09:32] LABS: HEMOGLOBIN 14.5 g/dL (14.0-18.0); MEAN CELL VOLUME 94.4 fL (80-100); MEAN CORPUSCULAR HEMOGLOBIN 32.6 pg (25-34); MEAN CORPUSCULAR HGB CONC 34.5 g/dl (32-36); MEAN PLATELET VOLUME 9.4 fL (7.4-10.4); PLATELET COUNT 167 K/uL (130-400); RED CELL DISTRIBUTION WIDTH CV 14.2 % (11.5-14.5); RED CELL DISTRIBUTION WIDTH SD 48.8 fL (36.4-46.3); WHITE BLOOD COUNT 3.63 K/uL (4.8-10.8)
[2017-06-27 09:46] LABS: BLOOD UREA NITROGEN 12 mg/dl (7-18); CALCIUM 8.2 mg/dl (8.5-10.1); CARBON DIOXIDE 27 mmol/L (21-32); CREATININE 1.05 mg/dl (0.60-1.40); GLUCOSE 111 mg/dl (70-99); POTASSIUM 3.9 mmol/L (3.5-5.1); SODIUM 137 mmol/L (136-145)
== END | disposition home or self-care (01) ==
LOC: C.LAB1850 07:48
PROVIDERS: ATTEND Internal Medicine
DX: N40.0 Benign prostatic hyperplasia without lower urinary tract symptoms (principal); R73.09 Other abnormal glucose; Z79.01 Long term (current) use of anticoagulants